=== PATIENT | male | born 1960 | race Caucasian/White ===

== ENCOUNTER 2023-09-19 14:56 | Inpatient (IN) | payer OTHER ==
[2023-09-19 16:00] VITALS: BMI 18.4
[2023-09-19] MEDS ORDERED: ACETAMINOPHEN 325 MG TABLET (FP) PO PRN (18:40)
[2023-09-19] MEDS ORDERED: IBUPROFEN 400 MG TABLET (FP) PO PRN (18:40)
[2023-09-19] MEDS ORDERED: hydrOXYzine PAMOATE 25 MG CAPSULE (FP) PO PRN (18:40)
[2023-09-19] MEDS ORDERED: BENZOCAINE/MENTHOL (CHLORASEPTIC ) LOZENGE MM PRN (18:40)
[2023-09-19] MEDS ORDERED: POLYETHYLENE GLYCOL (HEALTHYLAX) 3350 17 GM PACKET PO PRN (18:40)
[2023-09-19] MEDS ORDERED: guaiFENesin 600 MG TABLET.ER (FP) PO PRN (18:40)
[2023-09-19] MEDS ORDERED: NALOXONE HCL 0.4 MG/ML VIAL IM PRN (18:40)
[2023-09-19] MEDS ORDERED: NALOXONE HCL (KLOXXADO) 8 MG SPRAY NS PRN (18:40)
[2023-09-19] MEDS ORDERED: COLLOIDAL OATMEAL 1 BAR EACH TP PRN (18:40)
[2023-09-19] MEDS ORDERED: IBUPROFEN 600 MG TABLET (FP) PO PRN (18:40)
[2023-09-19] MEDS ORDERED: BENZONATATE 200 MG CAPSULE PO PRN (18:40)
[2023-09-19] MEDS ORDERED: LOPERAMIDE HCL 2 MG CAPSULE PO PRN (18:40)
[2023-09-19] MEDS ORDERED: MAGNESIUM HYDROX 2400MG/30ML ORAL SUSPENSION 30 ML CUP PO PRN (18:40)
[2023-09-19] MEDS ORDERED: MAG HYDROX/AL HYDROX/SIMETH 30 ML UNIT-DOSE CUP PO PRN (18:40)
[2023-09-19] MEDS ORDERED: THIAMINE HCL 100 MG TABLET (FP) PO SCH (22:00)
[2023-09-19] MEDS ORDERED: MELATONIN 5 MG TABLETS PO SCH (22:00)
[2023-09-19] MEDS: MELATONIN 5 MG TABLETS PO SCH (23:36)
[2023-09-19] MEDS: THIAMINE HCL 100 MG TABLET (FP) PO SCH (23:36)
[2023-09-20] MEDS: PRENATAL VITAMINS W/ FOLIC ACID TABLET (FP) PO SCH (10:20)
[2023-09-20 11:21] LABS: HEMATOCRIT 35.9 % (35.4-49); HEMOGLOBIN 11.9 GM/dL (11.7-16.9); MCH 32.3 pg (25.7-33.7); MEAN CELL VOLUME 97.7 fl (80-96); MEAN PLT VOLUME 8.7 fl (7.5-11.1); PLATELET COUNT 291 10^3/uL (134-434); RBC 3.67 M/mm3 (4.00-5.60); WHITE BLOOD COUNT 7.2 K/mm3 (4.0-10.0)
[2023-09-20 11:39] LABS: CHLORIDE 109 mmol/L (98-107); POTASSIUM 4.2 mmol/L (3.5-5.1); SODIUM 141 mmol/L (136-145)
[2023-09-20 11:45] LABS: CALCIUM 8.2 mg/dL (8.5-10.1)
[2023-09-20 11:46] LABS: ALBUMIN 2.7 g/dl (3.4-5.0); ANION GAP 5 mmol/L (4-13); CO2 27 mmol/L (21-32); GLUCOSE,RANDOM 94 mg/dL (74-106)
[2023-09-20 11:49] LABS: CREATININE 0.6 mg/dL (0.55-1.3); SGOT/AST 18 U/L (15-37); SGPT/ALT 19 U/L (13-61)
[2023-09-20 11:50] LABS: BILIRUBIN,TOTAL 0.7 mg/dL (0.2-1)
[2023-09-20 11:51] LABS: TOT PROT 5.1 g/dl (6.4-8.2)
[2023-09-20 11:52] LABS: ALK PHOS 95 U/L (45-117)
[2023-09-20 13:43] LABS: SYPHILIS W/ RPR CONF NON-REACTIVE (NONREACTIVE)
[2023-09-20 14:52] LABS: EPI CELLS 10 /uL (0-25.1); HYALINE CASTS 0 /uL (0-3.1); PH,URINE 5.5 (5.0-8.0); URINE APPEARANCE CLEAR; URINE BACTERIA 3 /uL (0-1359); URINE BILIRUBIN NEGATIVE (NEGATIVE); URINE COLOR YELLOW; URINE GLUCOSE (UA) NEGATIVE (NEGATIVE); URINE KETONE NEGATIVE (NEGATIVE); URINE LEUK ESTERASE NEGATIVE (NEGATIVE); URINE NITRITE NEGATIVE (NEGATIVE); URINE PROTEIN NEGATIVE (NEGATIVE); URINE RBC 9 /uL (0-23.9); URINE UROBILINOGEN 0.2 mg/dL (0.2-1.0); URINE WBC 7 /uL (0-25.8)
[2023-09-20 15:09] LABS: URINE CRYSTALS FEW CALCIUM OXALATES /hpf
[2023-09-20] MEDS: MELATONIN 5 MG TABLETS PO SCH (21:17)
[2023-09-20] MEDS: THIAMINE HCL 100 MG TABLET (FP) PO SCH (21:17)
[2023-09-20] MEDS ORDERED: BISMUTH SUBSALICYLATE 262 MG/15 ML BTL PO ONE (21:34)
[2023-09-21] MEDS: PRENATAL VITAMINS W/ FOLIC ACID TABLET (FP) PO SCH (09:53)
[2023-09-21] MEDS ORDERED: METHYL SALICYLATE/MENTHOL OINT 30 GM TUBE TP PRN (11:52)
[2023-09-21] MEDS: ASPIRIN 81 MG CHEWABLE TABLETS PO SCH (12:45)
[2023-09-21] MEDS: TAMSULOSIN HCL 0.4 MG CAP PO SCH (12:45)
[2023-09-21] MEDS: LOSARTAN POTASSIUM 50 MG TABLET PO SCH (12:57)
[2023-09-21] MEDS: ATORVASTATIN CA 10 MG TABLET (FP) PO SCH (21:34)
[2023-09-21] MEDS: MELATONIN 5 MG TABLETS PO SCH (21:34)
[2023-09-21] MEDS: THIAMINE HCL 100 MG TABLET (FP) PO SCH (21:34)
[2023-09-21] MEDS: PREGABALIN 75 MG CAPSULE PO SCH (22:08)
[2023-09-22] MEDS: LOSARTAN POTASSIUM 50 MG TABLET PO SCH (09:31)
[2023-09-22] MEDS: TAMSULOSIN HCL 0.4 MG CAP PO SCH (09:31)
[2023-09-22] MEDS: ASPIRIN 81 MG CHEWABLE TABLETS PO SCH (09:31)
[2023-09-22] MEDS: PRENATAL VITAMINS W/ FOLIC ACID TABLET (FP) PO SCH (09:31)
[2023-09-22] MEDS: PANTOPRAZOLE 40 MG TABLET PO SCH (09:32)
[2023-09-22] MEDS ORDERED: BISMUTH SUBSALICYLATE 262 MG/15 ML BTL PO PRN (13:23)
[2023-09-22] MEDS: ATORVASTATIN CA 10 MG TABLET (FP) PO SCH (21:12)
[2023-09-22] MEDS: MELATONIN 5 MG TABLETS PO SCH (21:12)
[2023-09-22] MEDS: THIAMINE HCL 100 MG TABLET (FP) PO SCH (21:12)
[2023-09-22] MEDS: PREGABALIN 75 MG CAPSULE PO SCH (21:12)
[2023-09-22] MEDS ORDERED: BISMUTH SUBSALICYLATE 262 MG/15 ML BTL ONE (21:59)
[2023-09-23 09:09] VITALS: PULSE 56
[2023-09-23] MEDS: ASPIRIN 81 MG CHEWABLE TABLETS PO SCH (09:39)
[2023-09-23] MEDS: LOSARTAN POTASSIUM 50 MG TABLET PO SCH (09:39)
[2023-09-23] MEDS: PANTOPRAZOLE 40 MG TABLET PO SCH (09:39)
[2023-09-23] MEDS: TAMSULOSIN HCL 0.4 MG CAP PO SCH (09:39)
[2023-09-23] MEDS: PRENATAL VITAMINS W/ FOLIC ACID TABLET (FP) PO SCH (09:39)
[2023-09-23 20:59] VITALS: BP 125/67; RESP 18; TEMP 97.8
[2023-09-23] MEDS: ATORVASTATIN CA 10 MG TABLET (FP) PO SCH (21:24)
[2023-09-23] MEDS: THIAMINE HCL 100 MG TABLET (FP) PO SCH (21:24)
[2023-09-23] MEDS: MELATONIN 5 MG TABLETS PO SCH (21:24)
== END 2023-09-23 21:52 | disposition home or self-care (01) | DRG 772 ==
LOC: YASAS 14:56 → Y3E 22:27
PROVIDERS: ADMIT Allergy & Immunology; ATTEND Psychiatry & Neurology Pain Medicine
PROC: HZ42ZZZ Group Counseling for Substance Abuse Treatment, Cognitive-Behavioral (ICD-10-PCS; principal; 2023-09-19)
DX: F10.20 Alcohol dependence, uncomplicated (principal); F14.20 Cocaine dependence, uncomplicated; F17.210 Nicotine dependence, cigarettes, uncomplicated; F22 Delusional disorders; E78.5 Hyperlipidemia, unspecified; I10 Essential (primary) hypertension; R56.1 Post traumatic seizures; M19.90 Unspecified osteoarthritis, unspecified site; N40.0 Benign prostatic hyperplasia without lower urinary tract symptoms
CPT/HCPCS: 36415; 80053; 80307; 81003; 85027; 86780; 86803; 87635; 93005; 93010

== ENCOUNTER 2024-06-10 12:20 | Emergency (ER) | payer OTHER ==
[2024-06-10 12:58] VITALS: BP 132/64; PULSE 55; RESP 16; TEMP 97.7; BMI 19.8
[2024-06-10] MEDS ORDERED: ACETAMINOPHEN 325 MG TABLET (FP) ONE (13:47)
[2024-06-10] MEDS: ACETAMINOPHEN 325 MG TABLET (FP) PO ONE (13:50)
[2024-06-10 14:10] LABS: BASO % 0.9 % (0-2.0); EOS % 4.8 % (0-4.5); HEMATOCRIT 36.9 % (35.4-49); HEMOGLOBIN 12.2 GM/dL (11.7-16.9); LYMPH % 13.5 % (8-40); MCH 32.3 pg (25.7-33.7); MCHC 33.2 g/dl (32.0-35.9); MEAN CELL VOLUME 97.3 fl (80-96); MONO % 8.9 % (3.8-10.2); NEUT % 71.9 % (42.8-82.8); PLATELET COUNT 283 10^3/uL (134-434); RBC 3.79 M/mm3 (4.00-5.60); RDW 14.1 % (11.9-15.9); WHITE BLOOD COUNT 7.1 K/mm3 (4.0-10.0)
[2024-06-10 14:27] LABS: POTASSIUM 4.2 mmol/L (3.5-5.1)
[2024-06-10 14:29] LABS: ALBUMIN 3.1 g/dl (3.4-5.0); BLOOD UREA NITROGEN 17.7 mg/dL (7-18)
[2024-06-10 14:32] LABS: CREATININE 0.8 mg/dL (0.55-1.3)
[2024-06-10 14:34] LABS: BILIRUBIN,TOTAL 0.4 mg/dL (0.2-1); TOT PROT 5.8 g/dl (6.4-8.2)
== END 2024-06-10 19:53 ==
LOC: JER 12:20
DX: S00.01XA Abrasion of scalp, initial encounter (principal); M25.561 Pain in right knee; M25.562 Pain in left knee; W18.30XA Fall on same level, unspecified, initial encounter
CPT/HCPCS: 36415; 70450-TC; 80053; 85025; 99283-25

== ENCOUNTER 2024-08-25 08:47 | Emergency (ER) | payer OTHER ==
[2024-08-25 09:00] VITALS: BMI 22.1
[2024-08-25] MEDS ORDERED: DIPHTH,PERTUSS(ACELL),TET 0.5 ML DISP.SYRIN IM ONE (09:34)
[2024-08-25] MEDS ORDERED: ACETAMINOPHEN 325 MG TABLET (FP) ONE (09:34)
[2024-08-25] MEDS: DIPHTH,PERTUSS(ACELL),TET 0.5 ML DISP.SYRIN IM ONE (09:35)
[2024-08-25] MEDS: ACETAMINOPHEN 325 MG TABLET (FP) PO ONE (09:36)
[2024-08-25] MEDS ORDERED: LIDOCAINE HCL 1%, 10 MG/ML (20ML VIAL) ONE (10:01)
[2024-08-25 12:32] VITALS: BP 130/77; TEMP 98.1
[2024-08-25 12:42] VITALS: PULSE 57; RESP 17
[2024-08-25 12:49] LABS: BASO % 0.6 % (0-2.0); EOS % 2.7 % (0-4.5); HEMATOCRIT 40.1 % (35.4-49); HEMOGLOBIN 13.3 GM/dL (11.7-16.9); LYMPH % 12.1 % (8-40); MCH 31.4 pg (25.7-33.7); MCHC 33.2 g/dl (32.0-35.9); MEAN CELL VOLUME 94.6 fl (80-96); MEAN PLT VOLUME 7.3 fl (7.5-11.1); MONO % 9.7 % (3.8-10.2); NEUT % 74.9 % (42.8-82.8); PLATELET COUNT 347 10^3/uL (134-434); RBC 4.23 M/mm3 (4.00-5.60); RDW 14.2 % (11.9-15.9); WHITE BLOOD COUNT 9.6 K/mm3 (4.0-10.0)
[2024-08-25 12:57] LABS: ACTIVATED PTT 30.8 SECONDS (25.2-36.5)
[2024-08-25 13:06] LABS: POTASSIUM 3.9 mmol/L (3.5-5.1)
[2024-08-25 13:08] LABS: CALCIUM 9.6 mg/dL (8.5-10.1)
[2024-08-25 13:09] LABS: ALBUMIN 3.6 g/dl (3.4-5.0); BLOOD UREA NITROGEN 7.3 mg/dL (7-18)
[2024-08-25 13:12] LABS: CREATININE 0.7 mg/dL (0.55-1.3)
[2024-08-25 13:13] LABS: BILIRUBIN,TOTAL 0.7 mg/dL (0.2-1); TOT PROT 6.6 g/dl (6.4-8.2)
[2024-08-25 13:32] LABS: INR 0.99 (0.83-1.09); PROTHROMBIN TIME (PATIENT) 11.2 SEC (9.7-13.0)
[2024-08-25 17:18] LABS: HIV INTERPRETATION NEGATIVE (NEGATIVE)
== END 2024-08-25 13:03 | disposition short-term general hospital (02) ==
LOC: JER 08:47
PROC: 0HQ1XZZ Repair Face Skin, External Approach (ICD-10-PCS; principal; 2024-08-25)
PROC: 3E0234Z Introduction of Serum, Toxoid and Vaccine into Muscle, Percutaneous Approach (ICD-10-PCS; 2024-08-25)
DX: S01.81XA Laceration without foreign body of other part of head, initial encounter (principal); Y04.8XXA Assault by other bodily force, initial encounter; Z23 Encounter for immunization
CPT/HCPCS: 12014; 36415; 70450-TC; 80053; 85025; 85610; 85730; 86803; 86850; 86900; 86901; 87389; 90471; 90715; 93005; 93010; 99291